=== PATIENT | female | born 1965 | race Caucasian/White ===

== ENCOUNTER → 2016-09-11 | Outpatient (CLI) | payer OTHER ==
--- NOTE | 2016-09-11 09:17 | DX ---
Right Knee, Three Views 8:09 a.m. Clinical History: 51-year-old female with chronic right lateral knee pain. ICD-10 Diagnostic Code: M17.11. Comparison Study: Right knee, dated June 19, 2014. Findings: Bone mineralization is preserved. There is slight medial offset of the distal femur relativ e to the proximal tibia, with degenerative osteophytes off the distal femur and the proximal tibia an d pinnacling of the tibial spines. There is degenerative medial femoral-tibial compartment narrowing. There appears to have been development of a small suprapatellar joint effusion. There are posterior patellar degenerative osteophytes. On the sunrise view, there is a mild degree of lateral patellofemo ral joint space narrowing. There is some mild medial soft tissue swelling. Impression: Moderate degenerative osteoarthritic changes.
== END ==
LOC: BMCIMAGING 08:10
PROVIDERS: ATTEND Orthopaedic Surgery
DX: M17.11 Unilateral primary osteoarthritis, right knee (principal)

== ENCOUNTER → 2018-11-27 | Outpatient (CLI) | payer OTHER | LOC: EMCIMAGING 12:47 | PROVIDERS: ATTEND Family Medicine | DX: Z12.31 Encounter for screening mammogram for malignant neoplasm of breast (principal) | CPT/HCPCS: 77067-PN ==